=== PATIENT | male | born 1945 | race Caucasian/White ===

== ENCOUNTER 2019-06-22 05:59 | Day surgery (SDC) | payer OTHER, MEDICARE ==
[~2019-06-22] VITALS: Ht 177.8 cm; Wt 76.2 kg
--- NOTE | ~2019-06-22 | O ---
[facility] [place] [address] OPERATIVE REPORT Name: EDWARD RAJAN Room #: 150-[facility] M..#: [id number] Admission: 06/22/19 Attend Phys: Sarmad Evans MD Discharge: Date of : 43 Report #: [id number] THIS REPORT FOR: //name// CC: Mendoza Evans DATE OF SERVICE: 06/22/2019 PREOPERATIVE DIAGNOSES: Deviated nasal septum with nasal airway obstruction. POSTOPERATIVE DIAGNOSES: Deviated nasal septum with nasal airway obstruction. OPERATIVE PROCEDURE: Nasal septoplasty. ANESTHESIA: General by laryngeal mask. DESCRIPTION OF PROCEDURE: The patient was taken to the operating room and placed in supine position. General anesthesia was induced by laryngeal mask. Once adequate general anesthesia was obtained, local nasal anesthesia was induced by submucoperichondrial injection of 1% lidocaine with 1:100,000 epinephrine and topical application of cocaine solution. The patient was then draped in a sterile manner. The patient had a nasal septal deviation primarily to the right side. There was a large septal spur along the floor and protrusion of the anterior cartilaginous septum into the right nasal vestibule. A hemitransfixion incision was placed on the right side of the nose and the mucoperichondrium and mucoperiosteum was elevated off the septum. The cartilage was incised in front of the bony cartilaginous junction and a portion of cartilage and bone was removed from the midportion of the septum. I isolated the septal spur along the floor and removed some hypertrophic cartilage which had fallen over a fracture of the maxillary crest. The cartilage was removed as a long strip and maxillary crest was rongeured and chiseled. I then isolated the anterior cartilaginous septum on both sides of the nose and freed the cartilage along the floor and then fit the cartilage into a columellar pocket. After these maneuvers, the septum sat more in the midline. The hemitransfixion incision was then closed with 4-0 chromic suture and a 4-0 plain mattress sutures placed as well. The patient tolerated the procedure well. Blood loss was approximately 5 mL. The patient was then awoken and taken to recovery room in stable condition for postoperative monitoring. By: [id number] Sarmad Evans MD /nt
--- NOTE | ~2019-06-22 | H ---
[facility] [place] [address] HISTORY AND PHYSICAL Name: EDWARD RAJAN Room #: [facility] M.R.#: [id number] Admission: Attend Phys: Sarmad Evans MD Discharge: Date of : 43 Report #: [id number] THIS REPORT FOR: //name// CC: Mendoza Evans DATE OF SERVICE: 06/22/2019 The patient's procedure is scheduled for June 22. HISTORY OF PRESENT ILLNESS: The patient is having problems with headaches. He was recently diagnosed with sinusitis and was placed on antibiotics and 2 courses of steroids. He has headache, eye pain, cough, postnasal drainage, coughing up yellow mucus. He has a long of allergies. He takes Emily, Flonase and Astelin. 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 He had a CT scan of his sinuses which shows a deviated nasal septum. It does not show evidence of sinusitis, but there was loss of bone of the maxilla on the upper right molar area. PAST MEDICAL HISTORY: Also significant for heart problems and high blood pressure. MEDICATIONS: Include aspirin, Plavix, metoprolol, ramipril, Crestor, Lasix, Celebrex, Emily, Flonase. ALLERGIES: He is allergic to LIPITOR AND NIACIN. PHYSICAL EXAMINATION: He has a deviated nasal septum to the left side into the nasal cavity with a large spur along the floor on the right and he had some mild allergic swelling. His oropharynx and oral cavity were clear. IMPRESSION: Deviated nasal septum with allergic rhinitis. PLAN: Nasal septoplasty. By: [id number] Sarmad Evans MD /nt
[~2019-06-22 05:59] MED LIST: ALLEGRA-D 12 H1 EAC1 PO; ALLEGRA60 MG PO; ALTACE10 MG PO; ALTACE5 M1 PO; AMBEREN PO; AMBIEN 10 MG TA10 MG PO; AMBIENCR PO; ASPIR 8181 M1 PO; ASPIRIN325 PO; ASTELIN30 ML NS; AZELASTINE137 MCG/0. NASAL; CELEBREX400 MG PO; CRESTOR40 MG PO; ENDOCET 7.5-321 EACH PO; FAMVIR250 MG PO; FINASTERIDE5 MG PO; FISH OIL 1,2001 EAC3 PO; FLONASE 0.05%50 MCG NS; FUROSEMIDE 20 M20 MG PO; GLUCOSAMINE-CH1 EA35 PO; HYDROCODONE-AP1 EAC6 PO; HYDROXYCHLOROQ200 M1 PO; LUNESTA2 MG PO; METANX TABLET1 EAC1 PO; MULTIVITAMINS PO; NITRO-DUR1 EAC1 TRANSDERM; NITROSTAT0.4 M1 SUBLING; NORCO 5-325 TA1 EACH PO; OXYCODONE-ACET1 EACH PO; OXYCONTIN CR 2020 MG PO; OXYCONTIN10 M1 PO; OXYCONTIN10 MG PO; OXYCONTIN20 M1 PO; OXYCONTIN20 MG PO; PERCOCET 7.5-31 EACH PO; PLAVIX 75 MG TA75 MG PO; PROTOPIC OINTME30 GM; RANEXA 500 MG500 M1 PO; RANEXA1000 MG PO; REPATHA SY140 MG/1 M SUBQ; RESTASIS1 EACH OPHTHALMIC; RESTORIL15 M1 PO; TOPROL XL50 MG PO; VITAMIN D1000 UNI1 PO; VYTORIN 10-801 EACH PO; XANAX 0.25 MG0.25 MG PO; XANAX 0.5 MG0.5 M1 PO; ZOLPIDEM TART12.5 MG PO; ZPAK
[2019-06-22 07:42] VITALS: BP 149/75
[2019-06-22 08:07] LABS: CALCIUM 9.9 mg/dL (8.5-10.1); CREATININE 1.2 mg/dL (0.7-1.3); POTASSIUM 4.2 mmol/L (3.5-5.1)
--- NOTE | 2019-06-22 08:09 | EKG ---
[address] [address] ELECTROCARDIOGRAM REPORT Name: EDWARD RAJAN Room #: [facility]#: [id number] Admission: 06/22/19 Attend Phys: Sarmad Eavns MD Discharge: Date of : 43 Report #: [id number] THIS REPORT FOR: //name// [facility] Test Date: 2019-06-22 Test Time: 06:20:53 Pat Name: EDWARD RAJAN Department: Room: Gender: Software Solutions Architect: PHUONG : 1945 Requested By: Sarmad Evans Order Number: [id number] MD: James Muñoz Measurements Intervals [place] Rate: 67 P: 58 NV: 188 QRS: 37 QRSD: 134 T: 10 QT: 441 QTc: 466 Interpretive Statements Sinus rhythm Right bundle branch block No previous ECG available for comparison Electronically Signed On 06-22-2019 8:09:25 CDT by James Muñoz [email or web address] <ELECTRONICALLY SIGNED> By: James Muñoz MD, [facility] 06/22/19 0809 0620 9 James Muñoz MD, FACC /EPI
[2019-06-22 08:58] VITALS: BP 149/75
== END 2019-06-22 09:35 | disposition home or self-care (01) ==
LOC: OR 05:59 → TBA 08:49 → OR 09:16
PROVIDERS: Otolaryngology
DX: J34.2 Deviated nasal septum (principal); J34.89 Other specified disorders of nose and nasal sinuses; I10 Essential (primary) hypertension; E78.5 Hyperlipidemia, unspecified; Z98.890 Other specified postprocedural states; Z79.899 Other long term (current) drug therapy; Z88.8 Allergy status to other drugs, medicaments and biological substances; Z85.828 Personal history of other malignant neoplasm of skin; Z98.41 Cataract extraction status, right eye; Z98.42 Cataract extraction status, left eye; Z79.82 Long term (current) use of aspirin
CPT/HCPCS: 50010; 50101; 50386; 50398; 56524; 56528; 62110; 62900; 64037; 70005